=== PATIENT | male | born 1975 | race Caucasian/White ===

== ENCOUNTER 2020-05-07 10:56 | Emergency (ER) | payer OTHER ==
[2020-05-07] MEDS ORDERED: Acetaminophen 500 MG Tab ONE (11:11)
[2020-05-07] MEDS ORDERED: Ketorolac 10 MG Tab ONE (11:11)
[2020-05-07] MEDS ORDERED: Ketorolac 10 MG Tab PO ONE (11:15)
--- NOTE | 2020-05-07 11:19 | EDM.PDOC ---
ED HPI GENERAL MEDICAL PROBLEM - General Chief Complaint: General Stated Complaint: RIGHT HAND INJURY AT WORK Time Seen by Provider: 05/07/20 11:00 Source of Information: Reports: Patient History Limitations: Reports: No Limitations - History of Present Illness INITIAL COMMENTS - FREE TEXT/NARRATIVE: patient presented to the ER with a c/o right wrist injury while at work. A heavy metal pole fell on his right wrist. 30 min ago, pain 8 out of 10 no pain meds taken Onset: Today Duration: Minutes: (30) Location: Reports: Upper Extremity, Right Quality: Reports: Sharp Severity: Severe Improves with: Reports: Immobilization Worsens with: Reports: Movement Associated Symptoms: Reports: No Other Symptoms Right Wrist Pain Score (Numeric/FACES): 8 - Related Data Allergies Allergy/AdvReac Type Severity Reaction Status Date / Time No Known Allergies Allergy Verified 05/07/20 11:05 Home Meds: Home Meds NK [No Known Home Meds] 05/07/20 [History] ED ROS GENERAL - Review of Systems Review Of Systems: See Below Constitutional: Reports: No Symptoms HEENT: Reports: No Symptoms Respiratory: Reports: No Symptoms Cardiovascular: Reports: No Symptoms : Reports: No Symptoms Musculoskeletal: Reports: Hand Pain Skin: Reports: No Symptoms ED EXAM, GENERAL - Physical Exam Exam: See Below Exam Limited By: No Limitations General Appearance: Alert, WD/WN, No Apparent Distress Head: Atraumatic, Normocephalic Neck: Normal Inspection Respiratory/Chest: No Respiratory Distress, Normal Breath Sounds Extremities: Other (right wrist is tendern to palpation, limited ROM, no deformity. intact distal pulses. ) Neurological: Alert, Oriented, No Motor/Sensory Deficits Psychiatric: Normal Affect, Normal Mood Course - Vital Signs Last Recorded V/S: Last Vital Signs Temp 36.1 C 05/07/20 11:01 Pulse 90 05/07/20 11:01 Resp 18 05/07/20 11:01 BP 147/80 H 05/07/20 11:01 Pulse Ox 97 05/07/20 11:01 - Orders/Labs/Meds Orders: Active Orders 24 hr Category Date Time Status Wrist Comp Min 3V Rt [CR] Stat Exams 05/07/20 11:14 Ordered Meds: Medications Discontinued Medications Generic Name Dose Route Start Last Admin Trade Name Freq PRN Reason Stop Dose Admin Acetaminophen Confirm 05/07/20 11:11 05/07/20 11:22 Tylenol Extra Strength Administered 05/07/20 11:12 Not Given Dose 1,000 mg .ROUTE .STK-MED ONE Acetaminophen 1,000 mg 05/07/20 11:23 05/07/20 11:15 Tylenol Extra Strength PO 05/07/20 11:24 1,000 mg ONETIME ONE Administration Ketorolac Tromethamine Confirm 05/07/20 11:11 05/07/20 11:22 Toradol Administered 05/07/20 11:12 Not Given Dose 10 mg .ROUTE .STK-MED ONE Ketorolac Tromethamine 10 mg 05/07/20 11:15 05/07/20 11:15 Toradol PO 05/07/20 11:16 10 mg ONETIME ONE Administration - Re-Assessments/Exams Free Text/Narrative Re-Assessment/Exam: pain was controlled with PO toradol and tylenol 1gm PO. Patient refused IM shot. xway wrist was ordered to rule out a fracture No fracture seen on x ray wrist splint and arm sling were applied d/cd on pain meds Departure - Departure Time of Disposition: 11:36 Disposition: Home, Self-Care 01 Condition: Good Clinical Impression: Injury of wrist, right - Discharge Information *PRESCRIPTION DRUG MONITORING PROGRAM REVIEWED*: Not Applicable *COPY OF PRESCRIPTION DRUG MONITORING REPORT IN PATIENT TYREL: Not Applicable Referrals: PCP,None [Primary Care Provider] - Forms: ED Department Discharge Sepsis Event Note (ED) - Evaluation Sepsis Screening Result: No Definite Risk - Focused Exam Vital Signs: Vital Signs Temp Pulse Resp BP BP Pulse Ox 05/07/20 11:01 36.1 C 90 18 147/80 H 147/80 H 97 - Problem List & Annotations (1) Injury of wrist, right SNOMED Code(s): 815908620 Code(s): S69.91XA - UNSP INJURY OF RIGHT WRIST, HAND AND FINGER(S), INIT ENCNTR Status: Acute Priority: Medium Current Visit: Yes Qualifiers: Encounter type: initial encounter Qualified Code(s): S69.91XA - Unspecified injury of right wrist, hand and finger(s), initial encounter (2) Contusion of wrist, right SNOMED Code(s): 33332927326142809 Code(s): S60.211A - CONTUSION OF RIGHT WRIST, INITIAL ENCOUNTER Status: Acute Priority: Medium Current Visit: Yes Qualifiers: Encounter type: initial encounter Qualified Code(s): S60.211A - Contusion of right wrist, initial encounter - Problem List Review Problem List Initiated/Reviewed/Updated: Yes - My Orders Last 24 Hours: My Active Orders 05/07/20 11:14 Wrist Comp Min 3V Rt [CR] Stat - Assessment/Plan Last 24 Hours: My Active Orders 05/07/20 11:14 Wrist Comp Min 3V Rt [CR] Stat Plan: - please keep wrist wrapped to help with immobilization - take pain meds as prescribed - apply ice on the affected area 20min every hour - follow up with your PCP in 1-2 weeks as needed if pain persisted
[2020-05-07] MEDS ORDERED: Acetaminophen 500 MG Tab PO ONE (11:23)
--- NOTE | 2020-05-07 12:15 | CR ---
DATE OF SERVICE: 05/07/20 CLINICAL DATA: injury RIGHT WRIST: No acute fracture or dislocation. No lytic or blastic bone lesions. The exam is otherwise unremarkable. [id number] [facility]
== END 2020-05-07 11:51 | disposition home or self-care (01) ==
LOC: LB.ED 10:56
DX: S60.211A Contusion of right wrist, initial encounter (principal); W20.8XXA Other cause of strike by thrown, projected or falling object, initial encounter; Y92.89 Other specified places as the place of occurrence of the external cause; Y99.0 Civilian activity done for income or pay
CPT/HCPCS: 73110-RT; 99283; 99283-25; A9270-GY